=== PATIENT | female | born 1965 | race Caucasian/White ===

== ENCOUNTER 2018-05-13 01:26 | Inpatient (IN) | payer BC, OTHER ==
[2018-05-13] VITALS (7 sets, daily range): BP systolic 98–124; BP diastolic 56–75
[~2018-05-13] VITALS: Ht 157.5 cm; Wt 64.5 kg
[2018-05-13] MEDS ORDERED: SODIUM CHLORIDE 0.9% 1000ML 1,000 ML IV STA (01:48)
[2018-05-13] MEDS ORDERED: IBUPROFEN 400 MG TAB PO STA (01:48)
[2018-05-13] MEDS ORDERED: CEFEPIME HCL 2 GM VIAL IV ONE (02:00)
[2018-05-13] MEDS ORDERED: VANCOMYCIN 1GM/NS 250 ML 250 ML IV ONE (02:00)
[2018-05-13 02:16] LABS: BASOPHILS % 0.4 % (0.0-1.0); HEMATOCRIT 35.9 % (34.2-44.1); HEMOGLOBIN 11.9 g/dL (12.0-16.0); LYMPHOCYTES # (AUTO) 1.3 (1.0-3.2); LYMPHOCYTES % 51.4 % (18.0-39.1); MEAN CORPUSCULAR HEMOGLOBIN 29.8 pg (28-32); MEAN CORPUSCULAR HGB CONC 33.1 g/dL (31-35); MONOCYTES % 39.5 % (4.4-11.3); NEUTROPHILS # (AUTO) 0.2 (2.1-6.9); NEUTROPHILS % 8.7 % (38.7-80.0); PLATELET COUNT 216 x10e3/uL (140-360); RED BLOOD COUNT 3.99 x10e6/uL (3.6-5.1); RED CELL DISTRIBUTION WIDTH 13.3 % (11.7-14.4)
[2018-05-13] MEDS ORDERED: VITAMIN D250000 UNIT PO (02:26)
[2018-05-13] MEDS ORDERED: METOPROLOL SUCC50 MG PO (02:26)
[2018-05-13] MEDS ORDERED: CIPRO500 MG PO (02:26)
[2018-05-13] MEDS ORDERED: OMEPRAZOLE40 MG PO (02:26)
[2018-05-13] MEDS ORDERED: CLOBETASOL PROP50 GM TOP (02:26)
[2018-05-13] MEDS ORDERED: FLUCONAZOLE100 MG PO (02:26)
[2018-05-13] MEDS ORDERED: BENZONATATE100 MG PO (02:26)
[2018-05-13] MEDS ORDERED: NYSTATIN100000 UNI PO (02:26)
[2018-05-13] MEDS ORDERED: TRIAMCINOLONE A15 G1 TOP (02:26)
[2018-05-13] MEDS ORDERED: ASPIR 8181 MG PO (02:26)
[2018-05-13] MEDS ORDERED: PREDNISONE20 MG PO (02:26)
[2018-05-13 02:29] LABS: BILIRUBIN,URINE NEGATIVE (NEGATIVE); CLARITY,URINE CLEAR (CLEAR); COLOR,URINE YELLOW (YELLOW); KETONES,URINE NEGATIVE (NEGATIVE); LEUKOCYTE ESTERASE ,URINE NEGATIVE (NEGATIVE); NITRITE,URINE NEGATIVE (NEGATIVE); PROTEIN,URINE DIPSTICK NEGATIVE (NEGATIVE); URINE UROBILINOGEN 0.2 mg/dL (0.2 - 1)
[2018-05-13 02:30] LABS: EPITHELIAL CELLS,URINE FEW /LPF; RBC,URINE 0-5 /HPF (0-5); WBC,URINE (MAN) 0-5 /HPF (0-5)
[2018-05-13 02:35] LABS: ALANINE AMINOTRANSFERASE 29 IU/L (0-55); ALBUMIN/GLOBULIN RATIO 0.9 (0.8-2.0); ALKALINE PHOSPHATASE 60 IU/L (40-150); ANION GAP 14.9 mmol/L (8-16); BLOOD UREA NITROGEN 7 mg/dL (7-26); BUN/CREATININE RATIO 10 (6-25); CALCIUM 8.8 mg/dL (8.4-10.2); CARBON DIOXIDE 24 mmol/L (22-29); CHLORIDE 101 mmol/L (98-107); CREATININE, SERUM 0.73 mg/dL (0.57-1.11); EST GLOMERULAR FILTRATION RATE > 60 ML/MIN (60-); GLUCOSE 105 mg/dL (74-118); POTASSIUM 3.9 mmol/L (3.5-5.1); SODIUM 136 mmol/L (136-145)
[2018-05-13 02:54] LABS: LYMPHOCYTES % (MANUAL) 66 % (19-48); MONOCYTES % (MANUAL) 22 % (3.4-9.0); NEUTROPHILS % (MANUAL) 12 % (40-74); PLATELET ESTIMATE ADEQUATE; PLATELET MORPHOLOGY COMMENT NORMAL; RBC MORPHOLOGY COMMENT NORMAL
--- NOTE | 2018-05-13 02:54 | Diagnostic Imaging Report ---
CHEST 2 VIEWS, Technique: CHEST 2 VIEWS Comparison: None Clinical history: Fever, pneumonia DISCUSSION: Normal cardiomediastinal silhouette with prominent left epicardial fat pad. Mildly tortuous thoracic aorta. No consolidation or edema. No effusion or pneumothorax. IMPRESSION: No acute abnormality Signed by: Dr Ronda Lopez MD on 05/13/2018 2:50 AM
[2018-05-13] MEDS ORDERED: ZOLPIDEM TARTRATE 5 MG TAB PO PRN (03:00)
[2018-05-13] MEDS ORDERED: DIPHENHYDRAMINE HCL INJ 50 MG/ML VIAL IV PRN (03:00)
[2018-05-13] MEDS ORDERED: PROMETHAZINE 12.5MG/ NACL 0.9% 12.5 MG/50 ML BAG IV PRN (03:00)
[2018-05-13] MEDS ORDERED: MORPHINE SULFATE INJ 4 MG/ML INJ IV PRN (03:00)
[2018-05-13] MEDS ORDERED: ONDANSETRON HCL INJ 2 MG/ML VIAL IV PRN (03:00)
[2018-05-13] MEDS ORDERED: ENALAPRILAT IV INJ 1.25 MG/ML VIAL IV PRN (03:00)
[2018-05-13] MEDS ORDERED: VANCOMYCIN 1GM/NS 250 ML 250 ML IV SCH (03:15)
[2018-05-13] MEDS: SODIUM CHLORIDE 0.9% 1000ML 1,000 ML IV SCH ×4 (03:30→23:21)
[2018-05-13] MEDS: PIPER-TAZ 3.375 GM 50 ML IV SCH ×4 (06:36→23:21)
[2018-05-13 06:37] LABS: CREATINE KINASE MB 3.5 ng/mL (0-5.0)
[2018-05-13] MEDS ORDERED: TRIAMCINOLONE ACET 0.1% CREAM 15 GM TUBE TOP PRN (09:00)
[2018-05-13] MEDS: FAMOTIDINE 20 MG TAB PO SCH ×2 (09:28→17:55)
[2018-05-13] MEDS: VANCOMYCIN 1GM/NS 250 ML 250 ML IV SCH ×2 (09:29→20:25)
[2018-05-13] MEDS: PREDNISONE 20 MG TAB PO SCH (09:29)
[2018-05-13] MEDS: NYSTATIN SUSPENSION 5 ML UDC PO SCH ×3 (09:29→20:25)
[2018-05-13] MEDS: ASPIRIN 81 MG CHEW TAB PO SCH (09:29)
[2018-05-13] MEDS: PANTOPRAZOLE SOD 40 MG TABEC PO SCH (09:30)
[2018-05-13] MEDS ORDERED: CLOBETASOL PROPIONATE 0.05% CRM 15 GM TUBE TOP PRN (09:30)
[2018-05-13] MEDS: FLUCONAZOLE 100 MG TAB PO SCH (09:40)
[2018-05-13 11:12] LABS: CREATINE KINASE MB 3.6 ng/mL (0-5.0)
[2018-05-13] MEDS: IBUPROFEN 200 MG TAB PO PRN (12:16)
[2018-05-13] MEDS: METOPROLOL SUCCINATE 50 MG TAB XL PO SCH (12:16)
--- NOTE | 2018-05-13 19:09 | History and Physical ---
This is a patient of Dr. Kim Palafox and Dr. Aniyah Cortez. 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 History of recently diagnosed dermatomyositis. Ill for approximately 2 months. Recent pharyngitis, fever as high as 102.5 and hoarseness. Low white count. White count was 2.43 with 12% neutrophils. Family history is noncontributory. She has had muscle weakness and rash. Elevated LFTs apparently which improved with corticosteroid therapy. She has anemia of chronic disease. Born in [place]. ALLERGIC TO GABAPENTIN--ADVERSE REACTION CAUSING HYPERACTIVITY. Nonsmoker. No alcohol. Prednisone was reduced from 60 to 40 three weeks ago. In addition, she takes methotrexate, Diflucan, vitamin D, Cipro and Prilosec. She has had sore throat, rashes on trunk and face. PHYSICAL EXAMINATION VITALS: Temperature 98.1, pulse 81, respirations 14, blood pressure 110/80. HEENT: There is thrush in the mouth. LUNGS: Clear. HEART: Regular rhythm. ABDOMEN: Nontender. EXTREMITIES: Not edematous. IMPRESSION: Significant neutropenia. Request hematology opinion for possible Neupogen. Infectious disease has also been consulted. Cultures to date are negative. Discontinue azathioprine. Continue moderate dose of prednisone, metoprolol, Diflucan, Pepcid, cefepime vancomycin and Zosyn. Thank you for this kind referral. Job#: [id number]
[2018-05-13] MEDS ORDERED: FILGRASTIM 300 MCG/ML VIAL SC ONE (20:30)
--- NOTE | 2018-05-13 21:41 | Consultation ---
DATE OF CONSULTATION: REASON FOR CONSULTATION: Fever. Thank you so much for asking me to see this patient. HISTORY: This patient who is very pleasant 53-year-old white female. She was recently diagnosed with dermatomyositis. Apparently, the patient has been seeing Dr. Aniyah Cotrez and Dr. Thomas (sp?) as an outpatient. She had extensive workup because she had this rash on her body, on her fingers, on her forehead. She had some abnormal blood marker. She was diagnosed with dermatomyositis. She was supposed to see a neurologist and product merchandiser, however, because of insurance she was postponing. The patient who was recently started on prednisone in which she was taking 60 mg that helped her symptoms a lot and she has been on it for almost a month now at 60 mg. It was dropped recently to 40 mg and she was started on azathioprine and she took it about for 3 weeks, but she started to have fever and chills and neutropenia. Her daughter called her she feels bad, to come back to the emergency room. Patient came to emergency room because she was not doing well. Patient was seen and interviewed. The medical scientist-oncologist, Dr. Oneil was present and the family was present. The patient is telling me that her problem started about in September with the above complaints. Now, she is just having fever and chills. She was never being checked for TB or other opportunistic infections for all this, and now she also has oral ulcers and she also had thrush at one point. PAST MEDICAL HISTORY: Dermatomyositis. PAST SURGICAL HISTORY: Denies. ALLERGIES: NKA. SOCIAL HISTORY: There is no smoking, drug abuse, alcohol abuse. FAMILY HISTORY: Otherwise unremarkable. REVIEW OF SYSTEMS: She does have oral sores. She is not feeling well. She is having fever and chills as mentioned above. She does have rash affecting, which is old according to her. LABORATORY DATA: White count 2.43, hemoglobin 11.9. Her sodium 136, potassium 3.9, creatinine 0.73. Her influenza A and B were negative. Her blood cultures are still pending. Patient has a chest x-ray, which was no acute abnormality. PHYSICAL EXAMINATION: GENERAL: She is currently alert, oriented, does not seem to be in acute distress. VITAL SIGNS: Temperature 100.0. HEENT: Normocephalic. Not pale or icteric, but she does have oral ulcers. NECK: Supple. No JVD, no lymphadenopathy, no thyromegaly. CHEST: Clear bilaterally. COR: S1 and S2. No S3, S4, or murmur. ABDOMEN: Soft. Bowel sounds present. No tenderness. EXTREMITIES: No edema. IMPRESSION: Fever and chills in a patient who is immunocompromised. While I agree with the choice of piperacillin-tazobactam and vancomycin, she is also on Diflucan, I would like to lower her prednisone to 20 mg p.o. daily from now on and hold off the azathioprine. Await her blood cultures. If we can lower the prednisone to 15 mg, that will be good. Will await the blood cultures and clinical progress. In the meantime, I think she will need gastroenterology workup, neurology workup. Will also check for TB QuantiFERON. The patient does have cats and dogs in the house. If she continued to have fever, we have to think about toxo and Cytomegalovirus. In the meantime, will continue the above choice of antibiotic. Recheck complete blood cell count daily. Recheck chemistry panel. Will follow up with the blood cultures. I also would like to order computerized tomography abdomen and pelvis if not done recently. Agree with intravenous fluids. Oral ulcers are probably viral at the present time. I think it could be due to from her azathioprine, but that is the more reason why I think we should do a gastroenterology workup, esophagogastroduodenoscopy, and colonoscopy. Discussed with the patient. Will follow with you. Job#: [id number]
[2018-05-14] VITALS (8 sets, daily range): BP systolic 108–141; BP diastolic 64–76
[2018-05-14 05:15] LABS: BASOPHILS % 0.6 % (0.0-1.0); HEMATOCRIT 32.9 % (34.2-44.1); HEMOGLOBIN 10.8 g/dL (12.0-16.0); LYMPHOCYTES # (AUTO) 1.2 (1.0-3.2); LYMPHOCYTES % 36.7 % (18.0-39.1); MEAN CORPUSCULAR HEMOGLOBIN 29.5 pg (28-32); MEAN CORPUSCULAR HGB CONC 32.8 g/dL (31-35); MEAN CORPUSCULAR VOLUME 89.9 fL (81-99); MONOCYTES # (AUTO) 1.2 (0.2-0.8); MONOCYTES % 35.5 % (4.4-11.3); NEUTROPHILS # (AUTO) 0.9 (2.1-6.9); PLATELET COUNT 177 x10e3/uL (140-360); RED BLOOD COUNT 3.66 x10e6/uL (3.6-5.1); RED CELL DISTRIBUTION WIDTH 13.4 % (11.7-14.4)
[2018-05-14] MEDS: PIPER-TAZ 3.375 GM 50 ML IV SCH ×3 (05:23→17:36)
[2018-05-14 05:33] LABS: ANION GAP 11.7 mmol/L (8-16); BLOOD UREA NITROGEN 8 mg/dL (7-26); BUN/CREATININE RATIO 12 (6-25); CALCIUM 8.3 mg/dL (8.4-10.2); CARBON DIOXIDE 23 mmol/L (22-29); CHLORIDE 110 mmol/L (98-107); CREATININE, SERUM 0.65 mg/dL (0.57-1.11); EST GLOMERULAR FILTRATION RATE > 60 ML/MIN (60-); GLUCOSE 104 mg/dL (74-118); POTASSIUM 3.7 mmol/L (3.5-5.1); SODIUM 141 mmol/L (136-145)
--- NOTE | 2018-05-14 06:06 | Diagnostic Imaging Report ---
CHEST SINGLE (PORTABLE), 05/14/2018 7:00 AM Technique: CHEST SINGLE (PORTABLE) Comparison: 05/13/2018 Clinical history: Fever Findings: See Impression Impression: 1. Stable cardiomediastinal silhouette given differences in technique. 2. New interstitial prominence, which may be technical. Differential includes central vascular congestion or small airways disease/bronchitis. Recommend follow-up upright PA and lateral. 3. No effusion or pneumothorax. Signed by: Dr Ronda Lopez MD on 05/14/2018 6:03 AM
[2018-05-14 06:57] LABS: BAND NEUTROPHILS % (MANUAL) 14 %; LYMPHOCYTES % (MANUAL) 38 % (19-48); MONOCYTES % (MANUAL) 35 % (3.4-9.0); NEUTROPHILS % (MANUAL) 13 % (40-74); PLATELET ESTIMATE ADEQUATE; PLATELET MORPHOLOGY COMMENT NORMAL; RBC MORPHOLOGY COMMENT NORMAL
[2018-05-14] MEDS: PANTOPRAZOLE SOD 40 MG TABEC PO SCH (08:30)
[2018-05-14] MEDS: FAMOTIDINE 20 MG TAB PO SCH ×2 (08:30→16:38)
--- NOTE | 2018-05-14 08:35 | Diagnostic Imaging Report ---
EXAM: CTA Chest WITH contrast / Pulmonary Embolus Study INDICATION: Shortness of breath, chest pain, rule out PE COMPARISON: None. TECHNIQUE: Angiogram of the chest was obtained using a multidetector helical scanner after administration of IV contrast. Coronal and sagittal reformations were obtained. Pulmonary embolus protocol. IV CONTRAST: 100 mL Isovue-370 COMPLICATIONS: None RADIATION DOSE: Total DLP: 954 mGy*cm Estimated effective dose: (DLP x 0.015 x size factor) mSv CTDIvol has been reviewed. It is below the limits set by the Radiation Protocol Committee (RPC). Appropriate CT dose reduction techniques were utilized. FINDINGS: Lines and Tubes: None. Lower Neck: The visualized thyroid gland is grossly unremarkable with no suspicious or significant nodule identified. Heart and Great Vessels: The aorta and main pulmonary artery measure 28 and 24 mm. respectively. No pericardial effusion. No pulmonary embolus. No significant vascular calcifications. Lymph Nodes: No suspicious adenopathy. Lungs: Dependent opacities in the lung bases suggest atelectasis. There is mild biapical scarring. Trachea and central bronchi are unremarkable. Minimal septal thickening noted. Presumed atelectasis/scarring lingula. Upper abdomen: No acute findings. Bones and Soft Tissues: No acute findings. IMPRESSION: 1. No pulmonary embolus, aortic aneurysm, or aortic dissection. 2. Mild septal thickening suggesting mild edema. 3. Other findings as above. Signed by: Dr. Lazaro Downey MD on 05/14/2018 8:32 AM
[2018-05-14] MEDS: METOPROLOL SUCCINATE 50 MG TAB XL PO SCH (08:43)
[2018-05-14] MEDS: VANCOMYCIN 1GM/NS 250 ML 250 ML IV SCH ×2 (08:43→21:10)
[2018-05-14] MEDS: FLUCONAZOLE 100 MG TAB PO SCH (08:43)
[2018-05-14] MEDS: PREDNISONE 20 MG TAB PO SCH (08:43)
[2018-05-14] MEDS: NYSTATIN SUSPENSION 5 ML UDC PO SCH ×3 (08:43→20:50)
[2018-05-14] MEDS: ASPIRIN 81 MG CHEW TAB PO SCH (08:43)
--- NOTE | 2018-05-14 08:51 | Diagnostic Imaging Report ---
Exam: Neck CT with contrast History: Dysphagia, dysarthria, and cervical lymphadenopathy Comparison studies: Chest CTA 05/14/2018 Technique: Axial images were obtained from the skull base to the thoracic inlet. Coronal and sagittal images reconstructed from the axial data. Dose modulation, iterative reconstruction, and/or weight based adjustment of the mA/kV was utilized to reduce the radiation dose to as low as reasonably achievable. Intravenous contrast: 100 cc iodinated intravenous contrast. Findings: Airway: Patent. Soft tissues: No abnormalities. Lymph nodes: No radiographically significant adenopathy. Vessels: Patent Glands (thyroid, parotid and submandibular): Normal in size and symmetric. No masses. Orbits: No abnormalities. Paranasal sinuses: Non-specific partial opacification of the maxillary sinuses. Otherwise, clear. Temporal bones: No abnormalities. Skull base and facial bones: Intact. Cervical spine: Unremarkable. IMPRESSION: 1. Non-specific inflammatory changes in the maxillary sinuses. 2. Otherwise, normal neck CT. Preliminary report provided by Dr. Ji at 1 05/06/2018 at 0852 hours Final report by Dr. Hathaway on 05/24/2018 at 1329 hours Signed by: Dr. Mitesh Hathaway M.D. on 05/14/2018 1:31 PM
[2018-05-14] MEDS ORDERED: IOPAMIDOL 370 MG/ML 200 ML INFUS..BTL INJ ONE (10:00)
[2018-05-14] MEDS ORDERED: SODIUM CHLORIDE 0.9% 50ML 50 ML ONE (10:00)
[2018-05-14] MEDS: IBUPROFEN 200 MG TAB PO PRN (10:41)
[2018-05-14] MEDS: SODIUM CHLORIDE 0.9% 1000ML 1,000 ML IV SCH (17:36)
[2018-05-14] MEDS ORDERED: FILGRASTIM 300 MCG/ML VIAL SC SCH (20:15)
[2018-05-15] VITALS (7 sets, daily range): BP systolic 99–156; BP diastolic 58–72
[2018-05-15] MEDS: PIPER-TAZ 3.375 GM 50 ML IV SCH ×4 (00:52→18:01)
[2018-05-15 05:46] LABS: BASOPHILS % 0.1 % (0.0-1.0); HEMATOCRIT 33.6 % (34.2-44.1); LYMPHOCYTES # (AUTO) 2.1 (1.0-3.2); LYMPHOCYTES % 15.3 % (18.0-39.1); MEAN CORPUSCULAR HEMOGLOBIN 29.6 pg (28-32); MEAN CORPUSCULAR HGB CONC 32.7 g/dL (31-35); MEAN CORPUSCULAR VOLUME 90.6 fL (81-99); MONOCYTES # (AUTO) 1.1 (0.2-0.8); MONOCYTES % 7.6 % (4.4-11.3); NEUTROPHILS # (AUTO) 9.5 (2.1-6.9); NEUTROPHILS % 68.5 % (38.7-80.0); PLATELET COUNT 196 x10e3/uL (140-360); RED BLOOD COUNT 3.71 x10e6/uL (3.6-5.1); RED CELL DISTRIBUTION WIDTH 13.8 % (11.7-14.4)
[2018-05-15 06:17] LABS: ALANINE AMINOTRANSFERASE 23 IU/L (0-55); ALBUMIN 2.3 g/dL (3.5-5.0); ALBUMIN/GLOBULIN RATIO 0.7 (0.8-2.0); ALKALINE PHOSPHATASE 53 IU/L (40-150); ANION GAP 14.5 mmol/L (8-16); BLOOD UREA NITROGEN 7 mg/dL (7-26); BUN/CREATININE RATIO 11 (6-25); CALCIUM 8.4 mg/dL (8.4-10.2); CARBON DIOXIDE 20 mmol/L (22-29); CHLORIDE 109 mmol/L (98-107); CREATININE, SERUM 0.63 mg/dL (0.57-1.11); EST GLOMERULAR FILTRATION RATE > 60 ML/MIN (60-); GLUCOSE 86 mg/dL (74-118); POTASSIUM 3.5 mmol/L (3.5-5.1); SODIUM 140 mmol/L (136-145)
[2018-05-15] MEDS: SODIUM CHLORIDE 0.9% 1000ML 1,000 ML IV SCH ×3 (08:52→22:48)
[2018-05-15] MEDS: VANCOMYCIN 1GM/NS 250 ML 250 ML IV SCH ×2 (08:52→20:31)
[2018-05-15] MEDS ORDERED: PREDNISONE 20 MG TAB PO SCH (09:00)
[2018-05-15] MEDS: NYSTATIN SUSPENSION 5 ML UDC PO SCH ×3 (10:37→20:31)
[2018-05-15] MEDS: FLUCONAZOLE 100 MG TAB PO SCH (10:37)
[2018-05-15] MEDS: PANTOPRAZOLE SOD 40 MG TABEC PO SCH (10:37)
[2018-05-15] MEDS: ASPIRIN 81 MG CHEW TAB PO SCH (10:37)
[2018-05-15] MEDS: FAMOTIDINE 20 MG TAB PO SCH ×2 (10:37→18:01)
[2018-05-15] MEDS: METOPROLOL SUCCINATE 50 MG TAB XL PO SCH (10:38)
[2018-05-15] MEDS ORDERED: IOPAMIDOL 370 MG/ML 200 ML INFUS..BTL INJ ONE (10:39)
[2018-05-15] MEDS ORDERED: SODIUM CHLORIDE 0.9% 50ML 50 ML ONE (10:39)
--- NOTE | 2018-05-15 10:41 | Diagnostic Imaging Report ---
EXAMINATION: CT of the abdomen and pelvis with contrast. TECHNIQUE: Spiral CT images of the abdomen and pelvis were performed from the lung bases to the lesser trochanters after the intravenous administration of 100 cc of Isovue-370 and the oral administration of water. Coronal and sagittal reformatted images were obtained. COMPARISON: CT chest PE protocol 05/14/2018 CLINICAL HISTORY:Abnormal liver function tests, bloating, abdominal distention DISCUSSION: ABDOMEN/PELVIS: LOWER THORAX:Subsegmental atelectasis lingula, right middle lobe, and bilateral lower lobes. HEPATOBILIARY: No focal hepatic lesions. No intra-or extrahepatic biliary ductal dilation. No radiopaque gallstones or pericholecystic inflammatory change. SPLEEN: No splenomegaly. PANCREAS: No focal masses or ductal dilatation. ADRENALS: No adrenal nodules. KIDNEYS/URETERS: Simple cyst in the medial aspect of the upper pole of the right kidney, average internal attenuation less than 20 Hounsfield units. No additional focal renal lesion. No calculus or hydronephrosis. PELVIC ORGANS/BLADDER: The urinary bladder is unremarkable. The uterus is anteflexed and appears normal. Tubal ligation clips. No adnexal mass. PERITONEUM/RETROPERITONEUM: No ascites or pneumoperitoneum. LYMPH NODES: No pelvic sidewall, retroperitoneal, or mesenteric lymphadenopathy. VESSELS: The abdominal aorta, major branch vessels, and iliac arterial systems are patent without aneurysmal dilatation. The portal vein, splenic vein, and central superior mesenteric vein are patent. GI TRACT: There is a short segment focus of concentric wall thickening, mucosal enhancement, and adjacent inflammatory stranding involving the proximal descending colon for example on series 2 image 24. The remainder of the large bowel shows no evidence of distention or wall thickening. The appendix is normal. The stomach is collapsed with prominent rugal folds. No small bowel dilatation to suggest obstruction. BONES AND SOFT TISSUE: No osseous destructive lesions. No soft tissue abnormalities. IMPRESSION: Findings consistent with mild colitis involving the proximal descending colon, likely infectious or inflammatory in nature. No cooper perforation or drainable fluid collection. Signed by: Dr. Frankie Damian M.D. on 05/15/2018 10:38 AM
[2018-05-15] MEDS: IBUPROFEN 200 MG TAB PO PRN (10:44)
[2018-05-16] VITALS (8 sets, daily range): BP systolic 111–162; BP diastolic 56–79
[2018-05-16] MEDS: PIPER-TAZ 3.375 GM 50 ML IV SCH ×5 (00:12→23:47)
[2018-05-16 06:23] LABS: HEMATOCRIT 31.5 % (34.2-44.1); HEMOGLOBIN 10.3 g/dL (12.0-16.0); LYMPHOCYTES # (AUTO) 2.5 (1.0-3.2); LYMPHOCYTES % 11.2 % (18.0-39.1); MEAN CORPUSCULAR HEMOGLOBIN 29.3 pg (28-32); MEAN CORPUSCULAR HGB CONC 32.7 g/dL (31-35); MEAN CORPUSCULAR VOLUME 89.5 fL (81-99); MONOCYTES # (AUTO) 1.2 (0.2-0.8); MONOCYTES % 5.3 % (4.4-11.3); NEUTROPHILS # (AUTO) 17.2 (2.1-6.9); NEUTROPHILS % 76.1 % (38.7-80.0); PLATELET COUNT 197 x10e3/uL (140-360); RED BLOOD COUNT 3.52 x10e6/uL (3.6-5.1); RED CELL DISTRIBUTION WIDTH 14.2 % (11.7-14.4)
[2018-05-16] MEDS: PANTOPRAZOLE SOD 40 MG TABEC PO SCH (08:09)
[2018-05-16] MEDS: FAMOTIDINE 20 MG TAB PO SCH ×2 (08:09→16:45)
[2018-05-16 08:55] LABS: BAND NEUTROPHILS % (MANUAL) 4 %; LYMPHOCYTES % (MANUAL) 10 % (19-48); METAMYELOCYTES % (MANUAL) 3 % (0-0); MONOCYTES % (MANUAL) 5 % (3.4-9.0); MYELOCYTES % (MANUAL) 3 % (0-0); NEUTROPHILS % (MANUAL) 75 % (40-74)
[2018-05-16 08:56] LABS: ANISOCYTOSIS SLIG; HYPOCHROMASIA SLIGHT; PLATELET ESTIMATE ADEQUATE; PLATELET MORPHOLOGY COMMENT NORMAL; POIKILOCYTOSIS SLIGHT; RBC MORPHOLOGY COMMENT NORMAL; TOXIC GRANULATION SLIGHT
[2018-05-16] MEDS: IBUPROFEN 200 MG TAB PO PRN (09:30)
[2018-05-16] MEDS: FLUCONAZOLE 100 MG TAB PO SCH (09:48)
[2018-05-16] MEDS: NYSTATIN SUSPENSION 5 ML UDC PO SCH ×3 (09:48→21:14)
[2018-05-16] MEDS: ASPIRIN 81 MG CHEW TAB PO SCH (09:48)
[2018-05-16] MEDS: METOPROLOL SUCCINATE 50 MG TAB XL PO SCH (09:48)
[2018-05-16] MEDS: VANCOMYCIN 1GM/NS 250 ML 250 ML IV SCH ×2 (09:48→21:14)
[2018-05-16] MEDS: PREDNISONE 20 MG TAB PO SCH (09:48)
[2018-05-16] MEDS: SODIUM CHLORIDE 0.9% 1000ML 1,000 ML IV SCH (14:51)
[2018-05-17] VITALS (9 sets, daily range): BP systolic 123–164; BP diastolic 64–81
[2018-05-17] MEDS: SODIUM CHLORIDE 0.9% 1000ML 1,000 ML IV SCH ×2 (03:31→09:25)
[2018-05-17] MEDS: PIPER-TAZ 3.375 GM 50 ML IV SCH ×2 (05:30→12:18)
[2018-05-17 06:05] LABS: HEMATOCRIT 31.7 % (34.2-44.1); HEMOGLOBIN 10.4 g/dL (12.0-16.0); LYMPHOCYTES % 8.1 % (18.0-39.1); MEAN CORPUSCULAR HEMOGLOBIN 29.4 pg (28-32); MEAN CORPUSCULAR HGB CONC 32.8 g/dL (31-35); MEAN CORPUSCULAR VOLUME 89.5 fL (81-99); MONOCYTES % 3.8 % (4.4-11.3); NEUTROPHILS # (AUTO) 20.1 (2.1-6.9); NEUTROPHILS % 81.4 % (38.7-80.0); PLATELET COUNT 190 x10e3/uL (140-360); RED BLOOD COUNT 3.54 x10e6/uL (3.6-5.1); RED CELL DISTRIBUTION WIDTH 14.3 % (11.7-14.4)
[2018-05-17 06:30] LABS: ANION GAP 10.4 mmol/L (8-16); BLOOD UREA NITROGEN 10 mg/dL (7-26); BUN/CREATININE RATIO 14 (6-25); CALCIUM 8.5 mg/dL (8.4-10.2); CARBON DIOXIDE 23 mmol/L (22-29); CHLORIDE 107 mmol/L (98-107); CREATININE, SERUM 0.69 mg/dL (0.57-1.11); EST GLOMERULAR FILTRATION RATE > 60 ML/MIN (60-); GLUCOSE 88 mg/dL (74-118); POTASSIUM 3.4 mmol/L (3.5-5.1); SODIUM 137 mmol/L (136-145)
[2018-05-17] MEDS: MAALOX/LIDOCAINE/BENADRYL/NYST 30 ML BTL PO PRN ×2 (08:17→16:11)
[2018-05-17 08:31] LABS: ANISOCYTOSIS SLIGHT; BAND NEUTROPHILS % (MANUAL) 4 %; HYPOCHROMASIA SLIGHT; LYMPHOCYTES % (MANUAL) 9 % (19-48); MONOCYTES % (MANUAL) 6 % (3.4-9.0); NEUTROPHILS % (MANUAL) 81 % (40-74); PLATELET ESTIMATE ADEQUATE; PLATELET MORPHOLOGY COMMENT NORMAL; RBC MORPHOLOGY COMMENT NORMAL
[2018-05-17] MEDS: FAMOTIDINE 20 MG TAB PO SCH ×2 (09:00→16:07)
[2018-05-17] MEDS: PANTOPRAZOLE SOD 40 MG TABEC PO SCH (09:00)
[2018-05-17] MEDS: IBUPROFEN 200 MG TAB PO PRN (09:15)
[2018-05-17] MEDS: FLUCONAZOLE 100 MG TAB PO SCH (09:15)
[2018-05-17] MEDS: METOPROLOL SUCCINATE 50 MG TAB XL PO SCH (09:15)
[2018-05-17] MEDS: ASPIRIN 81 MG CHEW TAB PO SCH (09:15)
[2018-05-17] MEDS: NYSTATIN SUSPENSION 5 ML UDC PO SCH ×2 (09:15→16:06)
[2018-05-17] MEDS: PREDNISONE 20 MG TAB PO SCH (09:15)
[2018-05-17] MEDS: VANCOMYCIN 1GM/NS 250 ML 250 ML IV SCH (09:40)
[2018-05-17] MEDS: CEFEPIME HCL 1 GM VIAL IV SCH ×2 (13:57→21:49)
[2018-05-17] MEDS: METRONIDAZOLE 500MG/NS 100ML 100 ML IV SCH ×2 (13:58→21:49)
[2018-05-18] VITALS (8 sets, daily range): BP systolic 119–175; BP diastolic 58–86
[2018-05-18] MEDS: METRONIDAZOLE 500MG/NS 100ML 100 ML IV SCH ×3 (05:58→21:43)
[2018-05-18] MEDS: FAMOTIDINE 20 MG TAB PO SCH ×2 (09:00→16:18)
[2018-05-18] MEDS: ASPIRIN 81 MG CHEW TAB PO SCH (09:00)
[2018-05-18] MEDS: CEFEPIME HCL 1 GM VIAL IV SCH ×2 (09:00→21:43)
[2018-05-18] MEDS: MAALOX/LIDOCAINE/BENADRYL/NYST 30 ML BTL PO PRN (09:00)
[2018-05-18] MEDS: METOPROLOL SUCCINATE 50 MG TAB XL PO SCH (09:00)
[2018-05-18] MEDS: IBUPROFEN 200 MG TAB PO PRN (09:00)
[2018-05-18] MEDS ORDERED: PREDNISONE 20 MG TAB PO SCH (09:00)
[2018-05-18] MEDS: PANTOPRAZOLE SOD 40 MG TABEC PO SCH (09:00)
[2018-05-18 09:16] LABS: BASOPHILS # (AUTO) 0.2 (0.0-0.1); BASOPHILS % 0.7 % (0.0-1.0); HEMATOCRIT 34.1 % (34.2-44.1); HEMOGLOBIN 11.1 g/dL (12.0-16.0); LYMPHOCYTES # (AUTO) 1.8 (1.0-3.2); MEAN CORPUSCULAR HEMOGLOBIN 28.9 pg (28-32); MEAN CORPUSCULAR HGB CONC 32.6 g/dL (31-35); MEAN CORPUSCULAR VOLUME 88.8 fL (81-99); MONOCYTES # (AUTO) 0.5 (0.2-0.8); MONOCYTES % 2.2 % (4.4-11.3); NEUTROPHILS # (AUTO) 18.8 (2.1-6.9); NEUTROPHILS % 83.1 % (38.7-80.0); PLATELET COUNT 172 x10e3/uL (140-360); RED BLOOD COUNT 3.84 x10e6/uL (3.6-5.1); RED CELL DISTRIBUTION WIDTH 14.3 % (11.7-14.4)
[2018-05-18 09:37] LABS: ALANINE AMINOTRANSFERASE 23 IU/L (0-55); ALBUMIN 2.3 g/dL (3.5-5.0); ALBUMIN/GLOBULIN RATIO 0.6 (0.8-2.0); ALKALINE PHOSPHATASE 97 IU/L (40-150); ANION GAP 15.7 mmol/L (8-16); BLOOD UREA NITROGEN 11 mg/dL (7-26); BUN/CREATININE RATIO 15 (6-25); CARBON DIOXIDE 22 mmol/L (22-29); CHLORIDE 102 mmol/L (98-107); CREATININE, SERUM 0.75 mg/dL (0.57-1.11); EST GLOMERULAR FILTRATION RATE > 60 ML/MIN (60-); GLUCOSE 144 mg/dL (74-118); POTASSIUM 3.7 mmol/L (3.5-5.1); SODIUM 136 mmol/L (136-145)
[2018-05-18 11:18] LABS: ANISOCYTOSIS SLIGHT; BAND NEUTROPHILS % (MANUAL) 2 %; LYMPHOCYTES % (MANUAL) 7 % (19-48); METAMYELOCYTES % (MANUAL) 1 % (0-0); MONOCYTES % (MANUAL) 3 % (3.4-9.0); MYELOCYTES % (MANUAL) 4 % (0-0); NEUTROPHILS % (MANUAL) 82 % (40-74); PLATELET ESTIMATE ADEQUATE; PLATELET MORPHOLOGY COMMENT NORMAL; POLYCHROMASIA FEW; RBC MORPHOLOGY COMMENT NORMAL
[2018-05-18] MEDS: PREDNISONE 20 MG TAB PO SCH (16:18)
[2018-05-19] VITALS (8 sets, daily range): BP systolic 127–178; BP diastolic 70–90
[2018-05-19] MEDS: METRONIDAZOLE 500MG/NS 100ML 100 ML IV SCH ×3 (05:28→21:20)
[2018-05-19] MEDS: IBUPROFEN 200 MG TAB PO PRN (05:33)
[2018-05-19 06:19] LABS: BASOPHILS # (AUTO) 0.1 (0.0-0.1); BASOPHILS % 0.6 % (0.0-1.0); HEMATOCRIT 31.2 % (34.2-44.1); HEMOGLOBIN 10.3 g/dL (12.0-16.0); LYMPHOCYTES # (AUTO) 1.5 (1.0-3.2); LYMPHOCYTES % 6.9 % (18.0-39.1); MEAN CORPUSCULAR HEMOGLOBIN 29.5 pg (28-32); MEAN CORPUSCULAR VOLUME 89.4 fL (81-99); MONOCYTES # (AUTO) 0.9 (0.2-0.8); MONOCYTES % 3.9 % (4.4-11.3); NEUTROPHILS # (AUTO) 18.3 (2.1-6.9); NEUTROPHILS % 84.3 % (38.7-80.0); PLATELET COUNT 161 x10e3/uL (140-360); RED BLOOD COUNT 3.49 x10e6/uL (3.6-5.1); RED CELL DISTRIBUTION WIDTH 14.2 % (11.7-14.4)
[2018-05-19] MEDS: FAMOTIDINE 20 MG TAB PO SCH ×2 (08:30→17:26)
[2018-05-19] MEDS: PANTOPRAZOLE SOD 40 MG TABEC PO SCH (08:30)
[2018-05-19 09:13] LABS: LYMPHOCYTES % (MANUAL) 1 % (19-48); MONOCYTES % (MANUAL) 3 % (3.4-9.0); NEUTROPHILS % (MANUAL) 96 % (40-74)
[2018-05-19 09:14] LABS: ANISOCYTOSIS SLIGHT; HYPOCHROMASIA SLIGHT; PLATELET ESTIMATE ADEQUATE; PLATELET MORPHOLOGY COMMENT NORMAL; RBC MORPHOLOGY COMMENT NORMAL
[2018-05-19] MEDS: CEFEPIME HCL 1 GM VIAL IV SCH ×2 (09:20→21:20)
[2018-05-19] MEDS: PREDNISONE 20 MG TAB PO SCH ×2 (09:20→17:26)
[2018-05-19] MEDS: METOPROLOL SUCCINATE 50 MG TAB XL PO SCH (09:20)
[2018-05-19] MEDS: ASPIRIN 81 MG CHEW TAB PO SCH (09:20)
[2018-05-19] MEDS: MAALOX/LIDOCAINE/BENADRYL/NYST 30 ML BTL PO PRN (15:36)
[2018-05-20] VITALS: BP 154/96
[2018-05-20 04:00] VITALS: BP 146/78
[2018-05-20 05:54] LABS: BASOPHILS # (AUTO) 0.1 (0.0-0.1); BASOPHILS % 0.6 % (0.0-1.0); HEMATOCRIT 32.6 % (34.2-44.1); HEMOGLOBIN 10.6 g/dL (12.0-16.0); LYMPHOCYTES # (AUTO) 1.4 (1.0-3.2); LYMPHOCYTES % 5.8 % (18.0-39.1); MEAN CORPUSCULAR HGB CONC 32.5 g/dL (31-35); MEAN CORPUSCULAR VOLUME 89.1 fL (81-99); MONOCYTES # (AUTO) 0.7 (0.2-0.8); MONOCYTES % 2.9 % (4.4-11.3); NEUTROPHILS # (AUTO) 20.2 (2.1-6.9); NEUTROPHILS % 86.3 % (38.7-80.0); PLATELET COUNT 171 x10e3/uL (140-360); RED BLOOD COUNT 3.66 x10e6/uL (3.6-5.1); RED CELL DISTRIBUTION WIDTH 14.2 % (11.7-14.4)
[2018-05-20 06:18] LABS: BLOOD UREA NITROGEN 11 mg/dL (7-26); BUN/CREATININE RATIO 19 (6-25); CALCIUM 8.9 mg/dL (8.4-10.2); CARBON DIOXIDE 21 mmol/L (22-29); CHLORIDE 106 mmol/L (98-107); CREATININE, SERUM 0.59 mg/dL (0.57-1.11); EST GLOMERULAR FILTRATION RATE > 60 ML/MIN (60-); GLUCOSE 132 mg/dL (74-118); SODIUM 138 mmol/L (136-145)
[2018-05-20] MEDS: METRONIDAZOLE 500MG/NS 100ML 100 ML IV SCH ×2 (06:22→14:26)
[2018-05-20 06:56] LABS: BAND NEUTROPHILS % (MANUAL) 1 %; LYMPHOCYTES % (MANUAL) 4 % (19-48); METAMYELOCYTES % (MANUAL) 1 % (0-0); MONOCYTES % (MANUAL) 7 % (3.4-9.0); MYELOCYTES % (MANUAL) 2 % (0-0); NEUTROPHILS % (MANUAL) 85 % (40-74); PLATELET ESTIMATE ADEQUATE; PLATELET MORPHOLOGY COMMENT NORMAL; RBC MORPHOLOGY COMMENT NORMAL
[2018-05-20] MEDS: METOPROLOL SUCCINATE 50 MG TAB XL PO SCH (08:30)
[2018-05-20] MEDS: PREDNISONE 20 MG TAB PO SCH ×2 (08:30→17:51)
[2018-05-20] MEDS: ASPIRIN 81 MG CHEW TAB PO SCH (08:30)
[2018-05-20] MEDS: FAMOTIDINE 20 MG TAB PO SCH ×2 (08:30→17:51)
[2018-05-20] MEDS: PANTOPRAZOLE SOD 40 MG TABEC PO SCH (08:30)
[2018-05-20] MEDS: CEFEPIME HCL 1 GM VIAL IV SCH (08:30)
[2018-05-20] MEDS: IBUPROFEN 200 MG TAB PO PRN ×2 (08:54→14:38)
[2018-05-20 09:05] VITALS: BP 145/85
[2018-05-20 11:37] VITALS: BP 145/85
[2018-05-20 12:54] VITALS: BP 143/78
--- NOTE | 2018-05-20 13:36 | Discharge Summary ---
FINAL DIAGNOSES 1. Neutropenia. 2. Dermatomyositis. 3. Fever and hoarseness, which has improved. 4. Colitis on CT scan of the abdomen and pelvis. ADMISSION HISTORY AND HOSPITAL COURSE: Ms. Gongora is a 53-year-old female. She presented to the emergency room with complaints of fever, sore throat, and cough. Her temperature was 102.5. She was neutropenic. Hematology and infectious disease were consulted. Dr. Carr evaluated the patient, recommended that neutropenia is due to Imuran, which she is taking for dermatomyositis. Workup was done and she received Neupogen. Patient's white cell count increased to 13,000 and then it gradually went up. Infectious workup was done and CT showed evidence of colitis. C. difficile was negative. Patient is clinically much better. Steroid dose was tapered to 30 mg and she started having severe muscle aches and pains and was unable to move. I have increased the dose to 30 mg b.i.d. and she has felt better. Her weakness and muscle pain is much better. She still has leukocytosis with white cell count of 23,000, which is a combination of mild infection, Neupogen, and prednisone. I have told them to follow up with her primary care physician and a CBC needs to be done next week to follow up on the white cell count. If the trend is that it is increasing, then it needs to be worked up. Patient and her has verbalized understanding. She will be discharged home to follow up with her primary care physician and driver license reviewing officer. DISCHARGE MEDICATIONS: List reviewed: I have given her a prescription for Levaquin p.o. 500 mg daily for 14 days and a work excuse. She will get a prescription for prednisone as well. CASSIDY ART MD Job#: [id number] SUB
[2018-05-20] MEDS: MAALOX/LIDOCAINE/BENADRYL/NYST 30 ML BTL PO PRN (14:27)
[2018-05-20] MEDS ORDERED: PREDNISONE20 MG PO (17:44)
[2018-05-20] MEDS ORDERED: LEVAQUIN500 MG PO (17:44)
[2018-05-20 17:50] VITALS: BP 143/89
== END 2018-05-20 18:05 | disposition home or self-care (01) | DRG 809 ==
LOC: ER 01:26 → ERHOLD 03:50 → IMCU 04:00 → UNDODISOB 16:09 → OBSVTOIN 05-14 13:44 → MED/SURG 05-14 17:38
PROVIDERS: ADMIT Internal Medicine; ATTEND Internal Medicine
DX: D70.2 Other drug-induced agranulocytosis (principal); M33.90 Dermatopolymyositis, unspecified, organ involvement unspecified; D84.9 Immunodeficiency, unspecified; K52.9 Noninfective gastroenteritis and colitis, unspecified; T45.1X5A Adverse effect of antineoplastic and immunosuppressive drugs, initial encounter; I25.10 Atherosclerotic heart disease of native coronary artery without angina pectoris; I25.83 Coronary atherosclerosis due to lipid rich plaque; J40 Bronchitis, not specified as acute or chronic; R50.81 Fever presenting with conditions classified elsewhere
CPT/HCPCS: 36415; 70491; 71045; 71046; 71260; 74177; 80048; 80053; 80202; 81001; 82550; 82553; 83518; 83605; 84145; 84484; 85025; 86704; 86706; 86803; 87040; 87045; 87070; 87086; 87177; 87328; 87340; 87400; 87493; 96367; 99284; G0378; J0692; J1442; J2543; J3370; J7030; Q9967